=== PATIENT | male | born 1980 | race Caucasian/White ===

== ENCOUNTER 2025-03-20 11:25 | Inpatient (IN) | payer OTHER ==
[2025-03-20 11:37] VITALS: BMI 23.3
[2025-03-20] MEDS ORDERED: chlordiazePOXIDE HCL 25 MG CAPSULE PO PRN (11:55)
[2025-03-20] MEDS ORDERED: NALOXONE (NARCAN) HCL 4 MG/0.1 ML SPRAY NS PRN (11:55)
[2025-03-20] MEDS ORDERED: BENZONATATE 200 MG CAPSULE PO PRN (11:55)
[2025-03-20] MEDS ORDERED: POLYETHYLENE GLYCOL (HEALTHYLAX) 3350 17 GM PACKET PO PRN (11:55)
[2025-03-20] MEDS ORDERED: hydrOXYzine PAMOATE 25 MG CAPSULE (FP) PO PRN (11:55)
[2025-03-20] MEDS ORDERED: LOPERAMIDE HCL 2 MG CAPSULE PO PRN (11:55)
[2025-03-20] MEDS ORDERED: BISMUTH SUBSALICYLATE 262 MG/15 ML BTL PO PRN (11:55)
[2025-03-20] MEDS ORDERED: ACETAMINOPHEN 325 MG TABLET (FP) PO PRN (11:55)
[2025-03-20] MEDS ORDERED: guaiFENesin 600 MG TABLET.ER (FP) PO PRN (11:55)
[2025-03-20] MEDS ORDERED: ONDANSETRON *ODT* 4 MG TABLET SL PRN (11:55)
[2025-03-20] MEDS ORDERED: MAG HYDROX/AL HYDROX/SIMETH 30 ML UNIT-DOSE CUP PO PRN (11:55)
[2025-03-20] MEDS ORDERED: BENZOCAINE/MENTHOL (CHLORASEPTIC ) LOZENGE MM PRN (11:55)
[2025-03-20] MEDS ORDERED: IBUPROFEN 400 MG TABLET (FP) PO PRN (11:55)
[2025-03-20] MEDS ORDERED: MAGNESIUM HYDROX 2400MG/30ML ORAL SUSPENSION 30 ML CUP PO PRN (11:55)
[2025-03-20] MEDS ORDERED: IBUPROFEN 600 MG TABLET (FP) PO PRN (11:55)
[2025-03-20] MEDS ORDERED: DICYCLOMINE HCL 10 MG CAPSULE PO PRN (11:55)
[2025-03-20] MEDS ORDERED: NICOTINE 21 MG/24 HOURS TOPICAL PATCH ONE (13:50)
[2025-03-20] MEDS ORDERED: PRENATAL VITAMINS W/ FOLIC ACID TABLET (FP) PO ONE (13:50)
[2025-03-20] MEDS ORDERED: levETIRAcetam 500 MG TABLET (FP) PO ONE (13:50)
[2025-03-20] MEDS: PRENATAL VITAMINS W/ FOLIC ACID TABLET (FP) PO SCH (13:52)
[2025-03-20] MEDS: levETIRAcetam 500 MG TABLET (FP) PO ONE (13:52)
[2025-03-20] MEDS: NICOTINE 21 MG/24 HOURS TOPICAL PATCH TD SCH (13:52)
[2025-03-20] MEDS ORDERED: ALBUTEROL SO4 0.083% IH SOL 2.5 MG/3 ML VIAL.NEB. NEB PRN (16:46)
[2025-03-20] MEDS: chlordiazePOXIDE HCL 25 MG CAPSULE PO SCH (17:13)
[2025-03-20] MEDS: METHOCARBAMOL 500 MG TABLET PO PRN (17:13)
[2025-03-20] MEDS: BUDESONIDE/FORMETEROL FUMARATE 160/4.5 mcg INHALER IH SCH (22:14)
[2025-03-20] MEDS: buPROPion HCL 100 MG TABLET PO SCH (22:15)
[2025-03-20] MEDS: THIAMINE 100 MG TABLET PO SCH (22:15)
[2025-03-20] MEDS: SULFAMETHOXAZOLE/TRIMETHOPRIM 800MG/160MG D.S. TABLET PO SCH (22:16)
[2025-03-20] MEDS: ATORVASTATIN CA 40 MG TABLET (FP) PO SCH (22:16)
[2025-03-20] MEDS: DIVALPROEX SODIUM 500 MG TABLET E.C. PO SCH (22:17)
[2025-03-20] MEDS: MELATONIN 5 MG TABLETS PO SCH (22:17)
[2025-03-21] MEDS: FLUoxetine HCL 20 MG CAPSULE PO SCH (10:38)
[2025-03-21 11:34] LABS: HEMATOCRIT 39.2 % (40.1-51.0); HEMOGLOBIN 12.4 g/dL (13.7-17.5); MCHC 31.6 g/dl (32.3-36.5); MEAN CELL VOLUME 92.2 fl (79.0-92.2); MEAN PLT VOLUME 12.4 fl (9.4-12.4); PLATELET COUNT 167 x10^3/uL (163-337); RDW 12.9 % (12.1-15.9)
[2025-03-21 11:37] LABS: ALBUMIN 3.4 g/dl (3.4-5.0); BLOOD UREA NITROGEN 25.9 mg/dL (7-18); CALCIUM 9.3 mg/dL (8.5-10.1)
[2025-03-21 11:42] LABS: BILIRUBIN,TOTAL 0.4 mg/dL (0.2-1); TOT PROT 6.1 g/dl (6.4-8.2)
[2025-03-21] MEDS: LACTULOSE 20 GM/30 ML UDC (FOR ORAL USE ONLY) PO SCH (15:43)
[2025-03-21] MEDS: BACITRACIN 0.9 GM PACKET TP SCH (15:43)
[2025-03-22] MEDS: chlordiazePOXIDE HCL 25 MG CAPSULE PO SCH (05:50)
[2025-03-22 10:08] VITALS: PULSE 62; RESP 17; TEMP 98.2
[2025-03-22 10:09] VITALS: BP 95/42
[2025-03-23] MEDS ORDERED: chlordiazePOXIDE HCL 10 MG CAPSULE PO PRN
[2025-03-23] MEDS ORDERED: chlordiazePOXIDE HCL 10 MG CAPSULE PO SCH (05:00)
[2025-03-24] MEDS ORDERED: chlordiazePOXIDE HCL 10 MG CAPSULE PO SCH (05:00)
[2025-03-25] MEDS ORDERED: chlordiazePOXIDE HCL 10 MG CAPSULE PO ONE (05:00)
== END 2025-03-22 11:11 | disposition left against medical advice (07) | DRG 770 ==
LOC: YASAS 11:25 → Y3N 13:49
PROVIDERS: ADMIT Allergy & Immunology; ATTEND Allergy & Immunology
PROC: HZ2ZZZZ Detoxification Services for Substance Abuse Treatment (ICD-10-PCS; principal; 2025-03-20)
DX: F10.230 Alcohol dependence with withdrawal, uncomplicated (principal); F14.20 Cocaine dependence, uncomplicated; F17.210 Nicotine dependence, cigarettes, uncomplicated; F31.9 Bipolar disorder, unspecified; F20.9 Schizophrenia, unspecified; E78.5 Hyperlipidemia, unspecified; G40.909 Epilepsy, unspecified, not intractable, without status epilepticus; E11.9 Type 2 diabetes mellitus without complications; Z79.84 Long term (current) use of oral hypoglycemic drugs; L03.115 Cellulitis of right lower limb
CPT/HCPCS: 36415; 80053; 80307; 82140; 82962; 85027; 86780; 93005; 93010

== ENCOUNTER 2025-04-17 12:11 | Inpatient (IN) | payer OTHER ==
[2025-04-17] MEDS ORDERED: BISMUTH SUBSALICYLATE 524 MG/30 ML PO PRN (12:51)
[2025-04-17] MEDS ORDERED: BENZOCAINE/MENTHOL (CHLORASEPTIC ) LOZENGE MM PRN (12:51)
[2025-04-17] MEDS ORDERED: MAG HYDROX/AL HYDROX/SIMETH 30 ML UNIT-DOSE CUP PO PRN (12:51)
[2025-04-17] MEDS ORDERED: MAGNESIUM HYDROX 2400MG/30ML ORAL SUSPENSION 30 ML CUP PO PRN (12:51)
[2025-04-17] MEDS ORDERED: BENZONATATE 200 MG CAPSULE PO PRN (12:51)
[2025-04-17] MEDS ORDERED: POLYETHYLENE GLYCOL (HEALTHYLAX) 3350 17 GM PACKET PO PRN (12:51)
[2025-04-17] MEDS ORDERED: guaiFENesin 600 MG TABLET.ER (FP) PO PRN (12:51)
[2025-04-17] MEDS ORDERED: ACETAMINOPHEN 325 MG TABLET (FP) PO PRN (12:51)
[2025-04-17] MEDS ORDERED: IBUPROFEN 600 MG TABLET (FP) PO PRN (12:51)
[2025-04-17] MEDS ORDERED: IBUPROFEN 400 MG TABLET (FP) PO PRN (12:51)
[2025-04-17] MEDS ORDERED: NALOXONE (NARCAN) HCL 4 MG/0.1 ML SPRAY NS PRN (12:51)
[2025-04-17] MEDS ORDERED: LOPERAMIDE HCL 2 MG CAPSULE PO PRN (12:51)
[2025-04-17] MEDS ORDERED: ONDANSETRON *ODT* 4 MG TABLET SL PRN (12:51)
[2025-04-17] MEDS ORDERED: DICYCLOMINE HCL 10 MG CAPSULE PO PRN (12:51)
[2025-04-17 13:45] VITALS: BMI 22.1
[2025-04-17] MEDS ORDERED: PRENATAL VITAMINS W/ FOLIC ACID TABLET (FP) PO ONE (15:09)
[2025-04-17] MEDS: PRENATAL VITAMINS W/ FOLIC ACID TABLET (FP) PO SCH (16:07)
[2025-04-17] MEDS: NALTREXONE HCL 50 MG TABLET PO ONE (17:10)
[2025-04-17] MEDS: DIVALPROEX SODIUM 500 MG TABLET E.C. PO SCH (23:01)
[2025-04-17] MEDS: DIVALPROEX SODIUM 250 MG TABLET E.C. PO ONE (23:01)
[2025-04-17] MEDS: ASPIRIN COATED 81 MG TABLET.EC PO SCH (23:51)
[2025-04-18] MEDS: MELATONIN 5 MG TABLETS PO SCH (00:28)
[2025-04-18] MEDS: THIAMINE 100 MG TABLET PO SCH (00:29)
[2025-04-18] MEDS: NALTREXONE HCL 50 MG TABLET PO SCH (10:31)
[2025-04-18 12:12] LABS: MEAN PLT VOLUME 12.2 fl (9.4-12.4); RDW 13.3 % (12.1-15.9)
[2025-04-18 12:14] LABS: IMMATURE PLATELET FRACTION # 2.90 x10^3/uL; MCHC 31.5 g/dl (32.3-36.5); MEAN CELL VOLUME 93.5 fl (79.0-92.2)
[2025-04-18 12:37] LABS: CO2 30.0 mmol/L (21-32); GLUCOSE,RANDOM 111.0 mg/dL (74-106)
[2025-04-18 12:41] LABS: CREATININE 1.1 mg/dL (0.55-1.3); SGOT/AST 23.0 U/L (15-37); SGPT/ALT 34.0 U/L (13-61)
[2025-04-18 12:42] LABS: TOT PROT 5.8 g/dl (6.4-8.2)
[2025-04-18 12:43] LABS: ALK PHOS 68.0 U/L (45-117)
[2025-04-20] MEDS: METHOCARBAMOL 500 MG TABLET PO PRN (22:20)
[2025-04-21] MEDS: NALTREXONE HCL 50 MG TABLET PO SCH (15:10)
[2025-04-21] MEDS: hydrOXYzine PAMOATE 25 MG CAPSULE (FP) PO PRN (16:07)
[2025-04-22 09:10] VITALS: BP 108/65; PULSE 77; RESP 18; TEMP 98
== END 2025-04-22 08:49 | disposition home or self-care (01) | DRG 774 ==
LOC: YASAS 12:11 → Y6N 15:31
PROVIDERS: ADMIT Allergy & Immunology; ATTEND Family Medicine Addiction Medicine
PROC: HZ2ZZZZ Detoxification Services for Substance Abuse Treatment (ICD-10-PCS; principal; 2025-04-17)
DX: F10.230 Alcohol dependence with withdrawal, uncomplicated (principal); F14.20 Cocaine dependence, uncomplicated; F17.210 Nicotine dependence, cigarettes, uncomplicated; F31.9 Bipolar disorder, unspecified; F25.9 Schizoaffective disorder, unspecified; G40.909 Epilepsy, unspecified, not intractable, without status epilepticus; E78.5 Hyperlipidemia, unspecified; E11.9 Type 2 diabetes mellitus without complications; Z79.84 Long term (current) use of oral hypoglycemic drugs; J45.909 Unspecified asthma, uncomplicated
CPT/HCPCS: 36415; 80053; 80164; 80305; 80307; 82962; 85027; 86780; 93005; 93010